=== PATIENT | female | born 1970 | race Two or more races ===

== ENCOUNTER 2024-06-01 08:07 | Emergency (ER) | payer OTHER, SELFPAY ==
[2024-06-01 08:14] VITALS: BP 129/84
[2024-06-01 08:15] VITALS: BMI 25.0
--- NOTE | 2024-06-01 08:48 | ED.GENMED ---
History of Present Illness
General
Chief Complaint: Fainting/Passed Out
Source: patient, family and ambulance crew
Exam Limitations: none
Time Seen by Provider: 06/01/24 08:15
Nursing documentation reviewed up to this point in time: agreed with
History of Present Illness
History of Present Illness:
54-year-old female presenting to the emergency department today with concerns of feeling lightheaded was able to sit down before passing out. [place] some palpitations as well. Claims that the lightheadedness occurred before the palpitations.
Symptoms lasted for a few minutes. Has had a headache for the last few days described as frontal throbbing. Does have similar headaches in the past. Denies being worst of life or abrupt in onset. No new medications not on any hormonal products.
Patient is not on blood thinners. No bleeding described. No chest pain or shortness of breath.
Review of Systems
Review of Systems
Allergies reviewed?: Yes
All Other Systems: ROS reviewed and negative except as documented in HPI and ROS
Phy Exam
Physical Exam
Physical Exam:
GENERAL: Alert , in no apparent distress
EYE: pupils equal and reactive
NECK: Supple, no significant adenopathy.
ENT: Swollen boggy nasal turbinates, postnasal drip, o/p clr, mmm.
CARDIAC: Regular rate and rhythm .
LUNGS: Clear breath sounds bilaterally, no acute respiratory distress, no wheezes/rales/rhonchi
ABDOMEN: Soft, without focal tenderness, no r/g, no cvat
NEUROLOGICAL: Alert and oriented, no focal neuro deficits
SKIN: Warm and dry, skin intact.
MUSCULOSKELETAL: No edema, well perfused.
PSYCH: Normal and appropriate interaction.
Course
Orders/Labs/Results
Orders:
Orders
06/01/24 08:08
EKG [Electrocardiogram (*1)] Urgent
Reason for Study: Palpitations
EKG- Treatment ONCE
06/01/24 08:43
Ketorolac [Toradol] 15 mg IM NOW STA
Metoclopramide [Reglan] 10 mg PO NOW STA
06/01/24 09:00
Urinalysis Reflex To Culture Urgent
Date Specimen was Collected: 06/01/24
Time Specimen was Collected: 09:00
Vital Signs
Initial and Last Documented VS:
Initial Vital Signs
Pulse Resp BP Pulse Ox
93 18 129/84 100
06/01/24 08:14 06/01/24 08:14 06/01/24 08:14 06/01/24 08:14
Last Documented Vital Signs
Temp Pulse Resp BP Pulse Ox
98.8 F 93 18 129/84 100
06/01/24 08:15 06/01/24 08:14 06/01/24 08:14 06/01/24 08:14 06/01/24 08:14
MDM/Problems Addressed
MDM/Problems Addressed:
The patient is a well-appearing 54-year-old female in no distress normal vital signs on arrival. Denies any current ongoing symptoms. Described presyncopal episode at work while standing up felt lightheaded then felt some palpitations afterward
did not fully lose consciousness able to sit down no traumatic injury. Has had some mild headache over the past few days claims this is a headache she has had many times in the past. She did mention history of anemia. It was recommended that we
get labs and additional testing. Patient's history of anemia and description of symptoms. She refusing claim that she feels well and would not like to get any blood testing at this time. The ramifications of missing a significant anemia causing
this or electrolyte problem was thoroughly discussed with the patient who demonstrated understanding but still would not like to get further blood testing at this point. Patient was found to have some inflammation of the back of her throat as well
as swollen boggy nasal turbinates. It was advised that she uses a nasal steroid to help with the inflammation which could be causing her ongoing facial pressure and headache. She was otherwise given medication for her headache at this point.
Patient reassessed after medications. Well-appearing no distress normal vital signs. Patient requesting to leave at this point as she feels well has been able to ambulate no ongoing symptoms.
*Critical Care Note
Total Time (30-74mins, 75-104mins- exclusive of procedures): Not Applicable
ED Attending Note
-
Portions of this chart may have been created with voice recognition software.� Occasional wrong word or��sound alike� substitutions may have occurred due to the inherent limitations of voice recognition software.
Discharge Plan
Departure
Patient Disposition: Home (Routine Discharge)
Date of Disposition: 06/01/24
Time of Disposition: 09:55
Patient with high blood pressure during this ER visit?: No
Condition: Good
Covid-19: Not Applicable
Discharge Problem:
Pre-syncope
Instructions: Syncope (Fainting) (DC)
Prescriptions:
New
fluticasone propionate [Flonase Allergy Relief] 50 mcg/actuation spray,suspension
1 spray intranasal BID Qty: 16 0RF
Referrals:
NONE,* [Family Provider] -
Activity Restrictions/Additional Instructions:
You came to the emergency department today after feeling lightheaded. Here you had a reassuring assessment. Please follow closely with your primary care doctor for further monitoring and assessment of this. Please take Flonase to help with your
nasal congestion and postnasal drip. Return for any worsening, new or concerning symptoms.
Interventions
Interventions:
*Risk Screen - Suicide Last Done: 06/01/24 08:18
*General Assessment Last Done: 06/01/24 08:18
*Neglect/Abuse Screening Last Done: 06/01/24 08:18
ED- Cardiac Assessment Last Done: 06/01/24 08:19
ED- Neurological Assessment Last Done: 06/01/24 09:14
Discharge Date and Time
Print Language: [id number]
[2024-06-01] MEDS: TORADOL 15 MG IM (08:56)
[2024-06-01] MEDS: REGLAN 10 MG PO (08:56)
[2024-06-01 09:14] LABS: Urine Albumin Negative (Neg - Trace); Urine Bilirubin Negative (Negative); Urine Character Clear (Clear); Urine Color Straw; Urine Glucose Negative (Negative); Urine Ketone Negative (Negative); Urine Leukocyte Negative (Negative); Urine Nitrite Negative (Negative); Urine Occult Blood Negative (Negative); Urine Urobilinogen Negative (Neg - 1+); Urine pH 6.5 (5.0-9.0)
[2024-06-01 09:53] VITALS: BP 127/94; BP 128/83; BP 151/86; PULSE 78; PULSE 79; PULSE 95
== END 2024-06-01 10:18 | disposition home or self-care (01) ==
LOC: EMR 08:07
PROVIDERS: Physician Assistant; EMERGENCY PHYSICIAN Emergency Medicine
DX: R55 Syncope and collapse (principal); R00.2 Palpitations; R51.9 Headache, unspecified; R09.82 Postnasal drip; D64.9 Anemia, unspecified
CPT/HCPCS: 99284; 96372; 81003; 93005